=== PATIENT | female | born 1990 | race Caucasian/White ===

== ENCOUNTER 2016-12-20 19:28 | Emergency (ER) | payer SELFPAY ==
[~2016-12-20 19:28] MED LIST: ACET325T33 PO; IBUP800T25 PO; PSEU30TA38 PO
== END 2016-12-20 20:53 | disposition left against medical advice (07) ==
LOC: E/R 19:28
DX: Z53.21 Procedure and treatment not carried out due to patient leaving prior to being seen by health care provider (principal)

== ENCOUNTER 2018-10-20 10:42 | Emergency (ER) | END 2018-10-20 13:32 | disposition home or self-care (01) ==